=== PATIENT | male | born 1945 | race Caucasian/White ===

== ENCOUNTER 2024-05-29 13:44 | Outpatient (AMB) | payer MEDICARE, SELFPAY ==
--- NOTE | 2024-05-29 13:48 | A.SPINEOV_ITS ---
Intake Visit Reasons: spinal stenosis Intake Note: Mr. Costello is here today c/o low back/leg pain. 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 He comes in today with a chief complaint of low back pain with associated leg pain and difficulty walking. In addition to this he also complains of numbness and paresthesias in his bilateral legs, worse on the left. When describing his pain/numbness/paresthesias he runs his hands over his posterior buttocks down his posterior / lateral calf. He states this has been ongoing for the past 4 months; prior to this he did not have any real issues with his back / legs. 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 He is a very active person, and is continuing to walk 3-4 miles at a time although he needs to stop about every 10 minutes. He still is able to cycle without issue, and go swimming without issue. He reports he has been evaluated by pain management at [facility], in scheduled for an epidural steroid injection with Dr. James in June. He is currently taking Tylenol in an effort to help mitigate his pain. He is also on prescription Flexeril. PMH: Previous C5-C6 cervical spinal fusion completed in [facility] in 2012. Previous right shoulder arthroscopy completed in 2012. Insomnia. Social hx: Patient does not smoke, reports no substance use. Medications: Tylenol, Klonopin, Flexeril. Allergies: NKDA. Physical exam: The patient has 5/5 strength in his upper and lower extremities. He is able to ambulate well and rises from a seated position without difficulty. He has no significant sensational deficits on exam. He has 1+ hypoactive reflexes diffusely, worse in the patella where his reflexes completely absent. (-) bilateral straight leg raise, (-) clonus, (-) cuadra's. Imaging review: MRI of the lumbar spine completed at [place] shows diffuse spondylosis of the lumbar spine. Overall it is a very poor quality MRI. At L2- 3 & L3-4 there is moderate central canal and bilateral foraminal stenosis with type 2 degenerative Modic endplate changes noted on the superior and inferior endplates of these levels. At L4-5 there is moderate bilateral foraminal stenosis, however the central canal appears patent. At L5-S1 there is a notable paracentral posterior disc bulge with severe bilateral foraminal stenosis. Additionally, on stir imaging there is significant endplate inflammation at L5- S1. Impression: Umm is a pleasant 79-year-old male who comes in today with a chief complaint of acute onset low back pain, with shooting pains into his bilateral lower extremities, difficulty with ambulation, and numbness/tingling in his lower extremities. He reports none of these symptoms present prior to the inciting incident mentioned above which happened roughly 4 months ago. He is very active individual and since the incident he has been, subjectively, quite restricted. The dermatomal distribution in which he describes his pain / symptoms matches the acute inflammatory pathology seen at L5-S1. I believe the superior levels of stenosis appear more degenerative and chronic in nature and are less likely to be contributory to his symptoms. I have sent the patient for a set of flexion/extension x-rays to ensure there is no listhesis seen with movement at L5-S1 as this area appears relatively unstable. I will review this case with Dr. Rosa and will touch base with the patient next week. If we do decide to proceed with surgery I will schedule him to come back and meet/discuss with Dr. Rosa. The total time spent with this visit with this patient was 45 minutes reviewing history, physical exam, MRI imaging review, and implementation of treatment plan or further diagnostic testing Chance Rosa MD,PhD [facility] Orders: Orders XR lumbar spine 4V min Today M48.00 - Spinal stenosis, site unspecified Coding Level of Care Code New Pt Level 4 (32529) Diagnoses Spinal stenosis M48.00
== END 2024-05-29 15:28 | disposition home or self-care (01) ==
PROVIDERS: PCP Internal Medicine; Visit Provider Physician Assistant
DX: M48.00 Spinal stenosis, site unspecified (principal)
CPT/HCPCS: 99204

== ENCOUNTER 2024-05-29 13:44 | Outpatient (REF) | payer MEDICARE, SELFPAY ==
--- NOTE | ~2024-05-29 | XR_ITS ---
EXAMINATION: XR LUMBAR SPINE CLINICAL INFORMATION: Spinal stenosis. COMPARISON: None available. TECHNIQUE: Five views of the lumbosacral spine including flexion-extension. FINDINGS: Vertebral body heights are normal. No fracture. There is retrolisthesis of L3 on L4 by 4 mm and L5 on S1 by 4 mm. These are not appreciably changed with flexion and extension, the range of motion is limited. There is severe degenerative disc disease in the lumbar spine from L2-L3 through L4-L5 characterized by marked loss of intervertebral disc height, endplate sclerosis, endplate irregularity, and endplate osteophytes. More moderate degenerative disc disease at L5-S1. Facet arthropathy is suspected in the lower lumbar spine as well. More mild degenerative disc disease in the lower thoracic spine and thoracolumbar junction. Bone mineralization is normal. Atherosclerotic calcifications are present in the abdominal aorta and iliac arteries. Mild osteoarthritis in the SI joints. XR/XR lumbar spine 4V min IMPRESSION: 1. Severe degenerative disc disease in the lumbar spine from L2-L3 through L4-L5. 2. Mild retrolisthesis of L3 on L4 and L5 on S1 without appreciable change with flexion and extension. Electronically signed by: Pineda Kerns MD 06/18/2024 10:44 PM EDT RP
== END 2024-05-29 13:45 | disposition home or self-care (01) ==
LOC: HO.HOSX 13:44
PROVIDERS: PCP Internal Medicine; Visit Provider Physician Assistant
DX: M48.061 Spinal stenosis, lumbar region without neurogenic claudication (principal); M47.816 Spondylosis without myelopathy or radiculopathy, lumbar region
CPT/HCPCS: 72110; 99202

== ENCOUNTER 2024-06-28 09:02 | Outpatient (AMB) | payer MEDICARE, SELFPAY ==
--- NOTE | 2024-06-28 09:35 | A.SPINEOV_ITS ---
Intake Visit Reasons: discuss treatment options Intake Note: Mr. Costello is here to Discuss treatment options. Health Care Facilities Inspector Required: No Allergies No Known Allergies Allergy (Verified 06/28/24 09:40) Assessment & Plan Assessment & Plan (1) Lumbar stenosis with neurogenic claudication: Code(s): M48.062 - Spinal stenosis, lumbar region with neurogenic claudication Category: Medical Plan Dear colleague, On June 28, 2024, I saw for follow-up Umm Costello. This 79-year-old male is suffering from neurogenic claudication most likely due to bilateral severe L5 foraminal stenosis. He is scheduled to undergo an injection in the beginning of July. I told him to go ahead but I think this is going to be a temporary fix. We discussed a bilateral L5 foraminotomy to address his symptoms if the injection is unsuccessful. He already completed all other forms of conservative treatment. He will call my office if he wants to proceed. I spent 20 minutes in his consult discussing surgical options inparticular a bilateral foraminotomy with the expected course. He is aware that if the symptoms return after the foraminotomy he will need an L5-S1 lumbar fusion. Topher Rosa MD, PhD Spine Fellowship Trained Neurosurgeon Director, [facility] Coding Level of Care Code Est Pt Level 3 (10483) Diagnoses Lumbar stenosis with neurogenic claudication M48.062
== END 2024-06-28 10:08 | disposition home or self-care (01) ==
PROVIDERS: PCP Internal Medicine; Visit Provider Neurological Surgery
DX: M48.062 Spinal stenosis, lumbar region with neurogenic claudication (principal)
CPT/HCPCS: 99213

== ENCOUNTER → 2024-06-28 09:02 | Outpatient (BNVA) | payer MEDICARE, SELFPAY | PROVIDERS: PCP Internal Medicine; Visit Provider Neurological Surgery | DX: M48.062 Spinal stenosis, lumbar region with neurogenic claudication (principal) | CPT/HCPCS: 99212 ==

== ENCOUNTER → 2024-08-06 10:41 | Outpatient (BNV) | payer MEDICARE, SELFPAY | PROVIDERS: PCP Internal Medicine; Visit Provider Internal Medicine Cardiovascular Disease | DX: I44.0 Atrioventricular block, first degree (principal) | CPT/HCPCS: 93010 ==

== ENCOUNTER 2024-08-22 06:28 | Day surgery (SDC) | payer MEDICARE, SELFPAY ==
--- NOTE | 2024-08-06 | ECG_ITS ---
Test Reason : PREOP Blood Pressure : / mmHG Vent. Rate : 066 BPM Atrial Rate : 066 BPM P-R Int : 220 ms QRS Dur : 086 ms QT Int : 392 ms P-R-T Axes : 051 009 066 degrees QTc Int : 410 ms Sinus rhythm with 1st degree A-V block Otherwise normal ECG No previous ECGs available Referred By: Kaitlynn Helms Electronically Signed By:JODI FENG MD
[2024-08-06 10:08] VITALS: BP 153/67; PULSE 70; RESP 18; O2SAT 97; BMI 24.5
--- NOTE | 2024-08-06 10:22 | HO.ANESPROP2 ---
Documented by User: Kaitlynn Helms NP 08/07/24 14:38 HPI - Anesthesia Eval Consult details Narrative: 79yo M for L5-S1 Foraminotomy, 08/22/24 High activity tolerance. Recently participated in [employer] (swimming, biking, running) No recent illness Bilateral hearing aids PMFSH Active Problems Active Problems: All Active Problems Lumbar stenosis with neurogenic claudication (Acute) Spinal stenosis (Acute) Past Medical History Medical History (Updated 08/06/24 @ 10:03 by Claribel Moon RN) Exercises daily Skin cancer Arthritis Depression PVC (premature ventricular contraction) Hearing difficulty of both ears Lumbar stenosis Insomnia Family History Family history of problems with anesthesia: No Surgical History Surgical History (Updated 08/06/24 @ 10:03 by Claribel Moon RN) History of esophagogastroduodenoscopy (EGD) H/O colonoscopy Hx of cardiac catheterization Hx of arthroscopy of shoulder Hx of fusion of cervical spine History of Problems with Anesthesia: No Social History Social History Are you a primary manager care management to a significant other at home: No Do you presently have visiting nurse or other home services: No Patient Tobacco Use Status: Never used Tobacco Use of substances other than those prescribed or required for medical reasons: No Have you been hit, kicked, punched, or otherwise hurt by someone within the past year? If so, by whom?: No Spiritual Healthcare Practices: none Jehovah'S Witness Healthcare Practices: [facility] Cultural Healthcare Practices: none Are you DNR?: Yes Advance Directives Information Provided: Yes (as above noted) Advance Directives on File: No Recently lost weight without trying: No Eating poorly because of decreased appetite: No Nutrition Risks: Surgical patient >75years Poor oral hygiene: No (one extracted tooth lower right-to do implant in future) Meds Allergies Allergy/AdvReac Type Severity Reaction Status Date / Time No Known Allergies Allergy Verified 08/22/24 07:12 Home Medications ?Medication ?Instructions ?Recorded ?Confirmed ?Last Taken ?Type acetaminophen 650 mg 1,300 mg PO BEDTIME 08/06/24 08/06/24 Unknown History tablet,extended release clonazepam 0.5 mg tablet 0.25 mg PO BEDTIME insomnia 08/06/24 08/06/24 Unknown History cyclobenzaprine 5 mg tablet 5 mg PO BEDTIME 08/06/24 08/06/24 Unknown History Exam Height,Weight and Vital Signs: Height 5 ft 7.5 in Weight 72.1 kg Last Vital Signs Pulse 70 08/06/24 10:08 Resp 18 08/06/24 10:08 BP 153/67 H 08/06/24 10:08 Pulse Ox 97 08/06/24 10:08 O2 Del Method Room Air 08/06/24 10:08 Pertinent Lab Results Pertinent Lab Results: Lab Results 08/06/24 Range/Units 11:14 WBC 6.9 (4.8-10.8) X10*3/uL RBC 4.30 L (4.60-5.80) X10*6/uL Hgb 13.0 L (14.0-18.0) g/dl Hct 38.4 L (42.0-52.0) % MCV 89.3 (80.0-98.0) fL MCH 30.2 (27.0-33.0) pg MCHC 33.9 (31.0-36.0) g/dl RDW 13.1 (11.0-16.0) % Plt Count 260 (160-400) X10*3/uL MPV 8.5 L (9.4-12.4) fL Absolute Nucleated RBC 0.000 (0.0-0.012) X10*3/uL Nucleated RBC % (auto) 0.0 (0.0-0.2) /100WBC Sodium 136 (135-145) mmol/L Potassium 4.3 (3.3-5.1) mmol/L Chloride 101 (96-108) mmol/L Carbon Dioxide 27 (22-29) mmol/L Anion Gap 12 (12-20) BUN 11 (9-16) mg/dL Creatinine 0.93 (0.5-1.4) mg/dL Estim Creat Clear Calc 59.2 Estimated GFR > 60 Random Glucose 98 (60-115) mg/dL Calcium 9.6 (8.4-10.2) mg/dL Narrative Narrative: EKG 08/2024 Vent. Rate : 066 BPM Atrial Rate : 066 BPM P-R Int : 220 ms QRS Dur : 086 ms QT Int : 392 ms P-R-T Axes : 051 009 066 degrees QTc Int : 410 ms Sinus rhythm with 1st degree A-V block Otherwise normal ECG No previous ECGs available Airway Mallampati Class: III TM Dist: >3cm (s/p cervical fusion) Neck ROM: Full Loose/Missing/Broken Teeth: Yes (missing right lower) Heart: RRR Lungs: CTAB Assessment and Plan Assessment Anesthesia Assessment: Anesthesia Plan Discussed and PAT Visit Final Anesthetic Review Family History of Problems with Anesthesia: No History of Problems with Anesthesia: No Documented by User: Julissa Wilson MD 08/22/24 08:14 [facility] Past Medical History Medical History (Updated 08/06/24 @ 10:03 by Claribel Moon RN) Exercises daily Skin cancer Arthritis Depression PVC (premature ventricular contraction) Hearing difficulty of both ears Lumbar stenosis Insomnia Surgical History Surgical History (Updated 08/06/24 @ 10:03 by Claribel Moon RN) History of esophagogastroduodenoscopy (EGD) H/O colonoscopy Hx of cardiac catheterization Hx of arthroscopy of shoulder Hx of fusion of cervical spine Social History Social History Are you a primary manager care management to a significant other at home: No Do you presently have visiting nurse or other home services: No Patient Tobacco Use Status: Never used Tobacco Use of substances other than those prescribed or required for medical reasons: No Have you been hit, kicked, punched, or otherwise hurt by someone within the past year? If so, by whom?: No Spiritual Healthcare Practices: none Jehovah'S Witness Healthcare Practices: [facility] Cultural Healthcare Practices: none Are you DNR?: Yes Advance Directives Information Provided: Yes (as above noted) Advance Directives on File: No Recently lost weight without trying: No Eating poorly because of decreased appetite: No Nutrition Risks: Surgical patient >75years Poor oral hygiene: No (one extracted tooth lower right-to do implant in future) Meds Allergies Allergy/AdvReac Type Severity Reaction Status Date / Time No Known Allergies Allergy Verified 08/22/24 07:12 Home Medications ?Medication ?Instructions ?Recorded ?Confirmed ?Last Taken ?Type acetaminophen 650 mg 1,300 mg PO BEDTIME 08/06/24 08/06/24 Unknown History tablet,extended release clonazepam 0.5 mg tablet 0.25 mg PO BEDTIME insomnia 08/06/24 08/06/24 Unknown History cyclobenzaprine 5 mg tablet 5 mg PO BEDTIME 08/06/24 08/06/24 Unknown History Assessment and Plan Assessment Anesthesia Assessment: Chart Reviewed Final Anesthetic Review NPO: Yes ASA Class: II Final Preanesthetic Review: No Changes in Pt Med Stat, Meds/Allgs Chart Reviewed, Consent Obtained/Reviewed and Anes Risks/Benef Reviewed Patient Risk: Intermediate Procedure Risk: Intermediate Anesthetic Plan Anesthetic Plan: GA Disposition: Standard PACU
[2024-08-06 12:05] LABS: Hematocrit 38.4 % (42.0-52.0); Mean Corpuscular HGB Conc 33.9 g/dl (31.0-36.0); Mean Corpuscular Hemoglobin 30.2 pg (27.0-33.0); Mean Corpuscular Volume 89.3 fL (80.0-98.0); Mean Platelet Volume 8.5 fL (9.4-12.4); Platelet Count 260 X10*3/uL (160-400); Red Cell Distribution Width 13.1 % (11.0-16.0); White Blood Count 6.9 X10*3/uL (4.8-10.8)
[2024-08-06 12:43] LABS: Anion Gap 12 (12-20); Blood Urea Nitrogen 11 mg/dL (9-16); Calcium 9.6 mg/dL (8.4-10.2); Carbon Dioxide 27 mmol/L (22-29); Chloride 101 mmol/L (96-108); Creatinine Clr Calc Pharmacy 59.2; Estimated Glomerular Filt Rate > 60; Glucose Random 98 mg/dL (60-115); Potassium 4.3 mmol/L (3.3-5.1); Sodium 136 mmol/L (135-145)
[2024-08-22] VITALS (7 sets, daily range): BP systolic 147–176; BP diastolic 71–93; PULSE 60–66; RESP 15–16; TEMP 36.1–36.5; O2SAT 98; BMI 24.1
--- NOTE | 2024-08-22 07:05 | P.HPSUR_ITS ---
Pre-Procedural Eval Section A - 24 Hr Update-Section A only Date of Service: 08/22/24 The patient is an INPATIENT: No Changes since office visit: No Cold of Flu in the past 2 weeks, No New Medical Problems, No Changes in Medication and No Patient answered all questions The patient has been examined within 24 hours of the surgical procedure. The History & Physical has been completed within 30 days and I have reviewed it.: No Section B - Complete if H&P > 30 days Chief Complaint: Spinal stenosis, lumbar region with neurogenic Allergies: Allergies Allergy/AdvReac Type Severity Reaction Status Date / Time No Known Allergies Allergy Verified 06/28/24 09:40 Review of Systems Sugical H&P ROS: Negative: Constitution, Cardiovascular, Respiratory, Neurological, Psychiatric, Hem-Onc, Allergic/Immunologic, Gastrointestinal, Genitourinary, Musculoskeletal, Integumentary, Endocrine and Eyes/Ears/Nose/Throat Exam Surgical H&P Exam: Normal: HEENT, Normal: Heart, Normal: Lungs, Normal: Extremities, Normal: Abdomen, Normal: Skin and Normal: Neurological (awake ,alert,oriented x 3 ) Plan Diagnosis/Plan: Unchanged bilateral L5 foraminotomy Time Spent With Patient Time: Total time managing care of this patient today __6__ minutes.
--- NOTE | 2024-08-22 07:28 | PM.DS ---
DS: Providers Provider Date of Service: 08/22/24 Date of discharge: 08/22/24 Primary care physician: Remedios Costello MD Admitting clinician: Topher Rosa DS: Diagnosis Discharge Diagnosis (1) Lumbar stenosis with neurogenic claudication: Status: Acute DS: Summary Time Attestation Discharge Coordination Time (in mins): 5 Quality: Safe Use of Opioids Does Pt have an Active Cancer Diagnosis on the Problem List?: No Quality: Stroke Does the patient have a stroke diagnosis?: No Physical Exam Vital Signs: Vital Signs: Last Vital Signs Pulse 70 08/06/24 10:08 Resp 18 08/06/24 10:08 BP 153/67 H 08/06/24 10:08 Pulse Ox 97 08/06/24 10:08 O2 Del Method Room Air 08/06/24 10:08 BMI result Body Mass Index 24.5 Discharge Plan Discharge Patient Disposition: Home, Self-Care Referrals: Remedios Costello MD [Primary Care Provider] - 1 Week Discharge Medications: New docusate sodium [Colace] 100 mg capsule 100 mg PO BID Qty: 20 0RF oxycodone 5 mg tablet 5 mg PO Q4H PRN (Reason: pain) Qty: 30 0RF Rx Instructions: Partial Fill upon patient request. Continued clonazepam 0.5 mg tablet 0.25 mg PO BEDTIME acetaminophen 650 mg Tablet Extended Release 1,300 mg PO BEDTIME cyclobenzaprine 5 mg tablet 5 mg PO BEDTIME Discharge Orders: Discharge Order (Routine); Ordered 08/22/24 Ordered By: Donald Zuleta Diet: Advance to usual diet Activity on Discharge: As tolerated Activity Restrictions/Additional Instructions: After your spinal surgery we ask you to observe the following restrictions/guidelines: Activity: It is normal to feel some discomfort as you increase your activity, but that will improve with time. We ask you avoid heavy lifting or acitivities that cause pain. As a general rule, 8lbs is a safe limit for lifting right after surgery. Walk as much as you feel comfortable but not to exhaustion. You will feel extra tired the first few days after surgery. Stay well hydrated. It is OK to walk up and down stairs You may return to driving when you are off narcotics (such as vicodin, oxycodone, dilaudid, etc), and you are back to normal functional capacity. If you have any concerns please check with office before driving. Return to work is specific to each patient and each surgery, so please speak with your doctor/PA at first follow up. Please bring paperwork such as FMLA at that time if you need it filled out. Medications: For optimum pain control, it is best to start with a combination of 500 mg of Tylenol every 4 hours with 600 mg of Motrin every 8 hours, and use narcotics as needed in between for breakthrough pain. We will give you a short supply of narcotics after surgery (usually one weeks worth). If you need more please call the office but do not use more than prescribed. You will need to give our office 48 hours notice if you need narcotics refilled and we do not fill narcotics on weekends or evenings. If you are on a narcotic, it is a good idea to take a stool softener such as colace or senna to avoid constipation If you take blood thinner such as aspirin, Plavix, Coumadin, Effient, Eliquis etc for conditions such as Afib, DVT, Pulmonary embolus, coronary disease, stents etc please speak with your surgeon about specific details as to when you can resume these medications. You can resume NSAIDs on post op day 1 (eg: Motrin, Naproxen, etc). Follow up: Please call the office, , after surgery to arrange a 3 week follow up for wound check. Wound Care: You may remove your dressing on the first day after surgery. ?You may ?leave open to air. Please do not remove the steri strips underneath. they will fall off on their own in one week. IT IS NORMAL FOR THE WOUND TO OOZE OR BE BLOODY FOR A FEW DAYS AFTER SURGERY. ?IF THIS HAPPENS JUST PLACE NEW DRESSING OVER IT TO AVOID STAINING CLOTHES. You may shower on post op day # 1 We ask that you do not let the water soak the wound. If it does get wet, just towel dry lightly. Please do not scrub your incision or place any type of chemical/ointment on the wound. No tub baths, pools or jacuzzis for one month. If you have any leaking or redness from your wound, or fevers, please call office Print Language: Mongolian
[2024-08-22] MEDS: methocarbamoL 750 MG TABLET PO (07:31)
[2024-08-22] MEDS: Gabapentin 300 MG CAPSULE PO (07:31)
[2024-08-22] MEDS: Lactated Ringers 1,000 ML 100 ML IVCONT (07:44)
--- NOTE | 2024-08-22 12:04 | W.PM.OPN ---
Operative Note Operative Note Date of Service: 08/22/24 Narrative: Preoperative Diagnosis: Spinal stenosis/lateral recess stenosis/neural foraminal stenosis Operation: Bilateral L5 Laminotomy, Partial facetectomy and foraminotomy with use of microscope Consent Informed Consent was obtained for this operation. I have explained the nature, purpose and benefits of the operation. I have discussed the risks and benefit of the operation including possible complications or adverse events with patient/family. Alternative(s) were discussed with the patient with their relative benefits and risks as well as the consequences of not accepting the operation were included in obtaining consent. Surgeon: ALICJA WALTER MD, PHD Procedure Assisted By: glen Lind Description of Procedure This patient is suffering from bilateral L5 radiculopathy, left more than right. MRI shows severe bilateral neuroforaminal stenosis. The patient was offered a decompression of the nervous structures. The procedure complications were explained. The patient was consented. The patient was brought to the operating room and endotracheally intubated. The patient was turned in prone position on the Armond frame. Prep and drape was done followed by timeout. Physician assistant director of residence life provided access. A mid lumbar incision was made followed by release of the paravertebral muscle bilaterally to expose the L5-S1 lamina and facet joint. An intraoperative x-ray was obtained to confirm the correct level. The microscope was brought in. I took over the procedure. The high-speed drill was used to do a left L5 laminotomy. #2 Kerrison was used to further remove the lamina towards the L5 foramen. With a nerve hook the medial wall of the L5 pedicle was palpated as well as the beginning of the L5 foramen. The facet joint was partially drilled down after which with a #2 Kerrison a foraminotomy was done. Severe compression of the nerve root was encountered and I am not sure if I was able to get enough space with a nerve root that is how severe the foraminal stenosis was. I turned my attention to the right side where again an L5 laminotomy was done and a partial facetectomy. Excessive ligaments were seen and removed. Again a foraminotomy was performed with with a similar findings as on the left side that I was not sure if adequate space was obtained. The microscope was removed. Hemostasis was done. Incision was closed in 2 layers. Steri-Strips were used to approximate incision. An OpSite with Tegaderm was used to cover the incision. All sponge needle counts were correct. Patient was extubated and transported in stable is to recovery room. If the symptoms persist then a lumbar fusion would be the next step to indirectly decompress the foramina. Anesthesia: General Estimated Blood Loss (ml): Minimal Duration of Surgery: Under 80 Minutes Postoperative Plan: Discharge to home
== END 2024-08-22 13:15 | disposition home or self-care (01) ==
PROVIDERS: Nurse Practitioner; PCP Internal Medicine; Visit Provider Neurological Surgery
PROC: (CPT 63047; principal; 2024-08-22 08:30)
DX: M48.062 Spinal stenosis, lumbar region with neurogenic claudication (principal); M54.16 Radiculopathy, lumbar region; R26.2 Difficulty in walking, not elsewhere classified; I49.3 Ventricular premature depolarization; Z79.899 Other long term (current) drug therapy
CPT/HCPCS: 63047; 36415; 80048; 85027; 93005; J0131; J0690; J1100; J2003; J2405; J2704; J3010

== ENCOUNTER → 2024-08-22 06:28 | Outpatient (BNV) | payer MEDICARE, SELFPAY | PROVIDERS: PCP Internal Medicine; Visit Provider Physician Assistant | DX: M48.062 Spinal stenosis, lumbar region with neurogenic claudication (principal) | CPT/HCPCS: 63047; 99499 ==

== ENCOUNTER 2024-09-05 09:03 | Outpatient (AMB) | payer MEDICARE, SELFPAY ==
--- NOTE | 2024-09-05 09:33 | A.SPINEOV_ITS ---
Intake Visit Reasons: incision check Intake Note: Mr. Costello is here today to have his insicion check. 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 He reports that the lump was 1st noticed a few days ago and was not present directly after surgery. He reports no pain associated with a lump aside from some slight tenderness to palpation. Additionally, he reported no redness, swelling, or drainage. I had him added onto my clinic to be seen the next day to make sure that there is not any significant issue. No new neurological deficits. Patient is able to ambulate well, rises from a seated position without difficulty. Incision is closed, well healing, with no signs of drainage. Slight scabbing over the incision site. Small circular edematous area noted underlying incision site about 2-3 cm in diameter. This area is nontender to palpation today on examination. I believe that Umm likely has a subcutaneous seroma. His incision site is healing well and he has no evidence of infection. He is otherwise well- appearing and reports no other issues. I would like him to follow up in about 2-3 weeks to make sure that this has resolved. He was encouraged to call our office if for any reason it becomes painful, erythematous, or begins draining. Chance Rosa MD,PhD [facility] Coding Level of Care Code Global (35221) Diagnoses Lumbar stenosis with neurogenic claudication M48.062
== END 2024-09-05 09:41 | disposition home or self-care (01) ==
PROVIDERS: PCP Internal Medicine; Visit Provider Physician Assistant
DX: M48.062 Spinal stenosis, lumbar region with neurogenic claudication (principal)
CPT/HCPCS: 99024

== ENCOUNTER → 2024-09-05 09:03 | Outpatient (BNVA) | payer MEDICARE, SELFPAY | PROVIDERS: PCP Internal Medicine; Visit Provider Physician Assistant | DX: M48.062 Spinal stenosis, lumbar region with neurogenic claudication (principal); Z48.811 Encounter for surgical aftercare following surgery on the nervous system; Z98.890 Other specified postprocedural states | CPT/HCPCS: 99212 ==

== ENCOUNTER 2024-09-26 10:12 | Outpatient (REF) | payer MEDICARE, SELFPAY ==
--- NOTE | ~2024-09-26 | XR_ITS ---
EXAMINATION: XR LUMBAR SPINE CLINICAL INFORMATION: Spinal stenosis, lumbar region with neurogenic claudication M48.062. COMPARISON: XR Lumbar spine 05/29/2024 TECHNIQUE: Frontal and lateral (neutral, flexion and extension) views of the lumbosacral spine are submitted. FINDINGS: There is bony demineralization. There is marked degenerative disc disease extending from L2-3 through L5-S1. Vacuum disc phenomenon is noted at L4-5 and L5-S1. The remaining included disc spaces are relatively well-maintained. No acute fracture or spondylolisthesis is seen. This no instability with flexion or extension. There is multi-level endplate and facet arthropathy. There are aortoiliac atherosclerotic calcifications. XR/XR lumbar spine 4V min IMPRESSION: 1. 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 Degenerative disc disease is most pronounced extending from L2-3 through L5-S1, where it is severe. 2. There is no instability with flexion or extension. Electronically signed by: Andrae Kramer MD 11/01/2024 06:08 PM TANA HERNDON
== END 2024-09-26 10:13 | disposition home or self-care (01) ==
LOC: HO.HOSX 10:12
PROVIDERS: PCP Internal Medicine; Visit Provider Physician Assistant
DX: M48.062 Spinal stenosis, lumbar region with neurogenic claudication (principal)
CPT/HCPCS: 72110; 99212

== ENCOUNTER 2024-09-26 10:12 | Outpatient (AMB) | payer MEDICARE, SELFPAY ==
--- NOTE | 2024-09-26 10:13 | HO.SPINEOV ---
Intake Visit Reasons: 1st post op Intake Note: Mr. Costello is here today for his 1st post op appointment. Radio Machinist Required: No Allergies No Known Allergies Allergy (Verified 09/26/24 10:15) Assessment & Plan Assessment & Plan (1) Lumbar stenosis with neurogenic claudication: Code(s): M48.062 - Spinal stenosis, lumbar region with neurogenic claudication Category: Medical Plan Procedure: Bilateral L5 Laminotomy, Partial facetectomy and foraminotomy Umm comes in today for his 1st postoperative visit after being seen for an acute visit postoperatively for an incision check. He reports that overall he has been doing well since his surgery. He has return to swimming, cycling, and walking. Unfortunately he still feels he has a component of neurogenic claudication when walking for more than 10 minutes. He will need to stop and rest and then continue walking. Overall he has been doing very well. In addition to this he has been working with a machine tool technology instructor and doing regular stretching. He asked several questions regarding the postoperative healing course, and we will be engaging in private lessons yoga to try and work out these residual symptoms. No new neurological deficits. The patient ambulates well and rises from a seated position without difficulty. His posterior incision site appears clean, dry, well healing. The seroma has reduced by about 50% since last seeing him. I sent a live her a set of lumbar flexion/extension x-rays to ensure that there was no instability as a result of the decompression. I encouraged him to follow up in a couple of months if he continues to have symptoms. Chance Rosa MD,PhD [facility] Orders: Orders XR lumbar spine 4V min Today M48.062 - Spinal stenosis, lumbar region with neurogenic claudication Coding Level of Care Code Global (44820) Diagnoses Lumbar stenosis with neurogenic claudication M48.062
== END 2024-09-26 11:19 | disposition home or self-care (01) ==
PROVIDERS: PCP Internal Medicine; Visit Provider Physician Assistant
DX: M48.062 Spinal stenosis, lumbar region with neurogenic claudication (principal)
CPT/HCPCS: 99024